=== PATIENT | male | born 1990 | race Caucasian/White ===

== ENCOUNTER 2018-04-22 03:47 | Emergency (ER) | payer OTHER ==
[~2018-04-22] VITALS: Ht 182.9 cm; Wt 81.2 kg
[2018-04-22] MEDS ORDERED: KEFLEX500 MG PO (05:12)
[2018-04-22 05:46] VITALS: BP 132/74
== END 2018-04-22 05:52 | disposition home or self-care (01) ==
LOC: EME 03:47
PROC: 0HQLXZZ Repair Left Lower Leg Skin, External Approach (ICD-10-PCS; principal; 2018-04-22)
DX: S91.012A Laceration without foreign body, left ankle, initial encounter (principal); W45.8XXA Other foreign body or object entering through skin, initial encounter; Y92.29 Other specified public building as the place of occurrence of the external cause; Y99.0 Civilian activity done for income or pay; F17.200 Nicotine dependence, unspecified, uncomplicated
CPT/HCPCS: 99281; 99283

== ENCOUNTER 2018-04-25 14:18 | Emergency (ER) | payer OTHER ==
[~2018-04-25] VITALS: Ht 180.3 cm; Wt 81.7 kg
[~2018-04-25 14:18] MED LIST: KEFLEX500 MG PO
[2018-04-25 17:39] VITALS: BP 128/76
== END 2018-04-25 17:40 | disposition home or self-care (01) ==
LOC: EME 14:18
DX: S90.32XA Contusion of left foot, initial encounter (principal); S91.012A Laceration without foreign body, left ankle, initial encounter; F17.200 Nicotine dependence, unspecified, uncomplicated; Z98.890 Other specified postprocedural states
CPT/HCPCS: 73610; 73630; 99281; 99283